=== PATIENT | male | born 1990 | race Caucasian/White ===

== ENCOUNTER 2017-01-10 17:15 | Emergency (ER) | payer OTHER ==
[~2017-01-10] VITALS: Wt 61.5 kg
[~2017-01-10 17:15] MED LIST: ACET500C5 PO; DIVA250T60 PO; QUET200T4 PO; TRAZ100T15 PO
[2017-01-10] MEDS ORDERED: CIPR500T4 PO (17:27)
--- NOTE | 2017-01-10 17:30 | ERD ---
ER Documentation Chief Complaint Date/Time DATE: 01/10/17 TIME: 17:29 Chief Complaint MED REFILL FOR CIPRO POSSIBLE EXPOSURE TO MENINGITIS NO SYMPTOMS HPI This is a 26-year-old male who is here for exposure to meningitis. The patient' s mother is being admitted for meningitis. Patient is asymptomatic and he is here for 1 dose of Cipro for prophylactic exposure ROS All systems reviewed and are negative except as per history of present illness. Medications Home Meds Active Scripts Ciprofloxacin Hcl* (Ciprofloxacin Hcl*) 500 Mg Tablet, 500 MG PO now for 1 Day, #1 TAB Prov:SONDRA KWAN DO 01/10/17 Acetaminophen* (Tylophen*) 500 Mg Capsule, 1 CAP PO Q6H Y for PAIN AND OR ELEVATED TEMP, #18 CAP Prov:BEL VINCENT MD 07/06/16 Divalproex Sodium* (Depakote*) 250 Mg Tablet.dr, 250 MG PO BID, #60 TAB Prov:KAT LIMA MD 03/13/16 Reported Medications Trazodone Hcl* (Trazodone Hcl*) 100 Mg Tablet, 100 MG PO QHS, #30 TAB 03/12/16 Quetiapine Fumarate* (Seroquel* XR) 200 Mg Tab.sr.24h, 200 MG PO BID 03/28/13 Allergies Allergies: Coded Allergies: aripiprazole (Verified Allergy, Mild, RASH/ITCHING, 03/12/16) PMhx/Soc History of Surgery: Yes Anesthesia Reaction: No Hx Neurological Disorder: Yes Hx Respiratory Disorders: Yes (Asthma) Hx Cardiac Disorders: No Hx Psychiatric Problems: Yes Hx Miscellaneous Medical Probl: Yes (per mother "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 Neck: Full range of motion..~ No meningismus. Resp: Clear to auscultation bilaterally Cardio: Regular rate and rhythm, no murmurs Abd: Soft, non tender, non distended. Normal bowel sounds Skin: No petechiae or rashes Back: No midline or flank tenderness Ext: No cyanosis, or edema Neur: Awake and alert Psych: Normal Mood and Affect Procedures/MDM Cipro 500 mg 1 Departure Diagnosis: Primary Impression: Exposure to meningitis Condition: Stable Patient Instructions: SONDRA Suazo DO Jan 10, 2017 17:30
== END 2017-01-10 17:38 | disposition home or self-care (01) ==
LOC: E/R 17:15
DX: Z20.811 Contact with and (suspected) exposure to meningococcus (principal); J45.909 Unspecified asthma, uncomplicated; Z87.891 Personal history of nicotine dependence
CPT/HCPCS: 99283

== ENCOUNTER 2017-04-28 00:53 | Emergency (ER) | payer OTHER ==
[~2017-04-28] VITALS: Ht 167.6 cm; Wt 62.7 kg
[~2017-04-28 00:53] MED LIST changes: +CIPR500T4 PO
[2017-04-28 00:56] VITALS: Ht 167.6 cm; Wt 62.7 kg
[2017-04-28 02:04] LABS: ABNORMAL IP MESSAGE 1; BASOPHILS % 0.4 % (0.0-2.0); EOSINOPHILS % 0.4 % (0.0-7.0); HEMOGLOBIN 11.9 g/dl (14.0-18.0); LYMPHOCYTES # 1.7 10^3/ul (0.8-2.9); LYMPHOCYTES % 30.8 % (15.0-51.0); MEAN CORPUSCULAR HEMOGLOBIN 32.5 pg (29.0-33.0); MEAN CORPUSCULAR VOLUME 92.9 fl (82.0-101.0); MEAN PLATELET VOLUME 11.4 fl (7.4-10.4); MONOCYTE # 0.8 10^3/ul (0.3-0.9); MONOCYTES % 13.8 % (0.0-11.0); NEUTROPHILS % 54.2 % (39.0-77.0); PLATELET COUNT 85 10^3/UL (140-415); POSITIVE DIFF @See below; RED BLOOD COUNT 3.66 10^6/ul (4.70-6.10); RED CELL DISTRIBUTION WIDTH 12.2 % (11.5-14.5); WHITE BLOOD COUNT 5.6 10^3/ul (4.8-10.8)
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
[2017-04-28 02:21] LABS: ALANINE AMINOTRANSFERASE 30 IU/L (13-69); ALBUMIN 3.9 g/dl (3.3-4.9); ALBUMIN/GLOBULIN RATIO 1.39; ALKALINE PHOSPHATASE 65 IU/L (42-121); ANION GAP 21 (8-16); ASPARTATE AMINO TRANSFERASE 26 IU/L (15-46); BILIRUBIN,INDIRECT 0.3 mg/dl (0-1.1); BILIRUBIN,TOTAL 0.3 mg/dl (0.2-1.3); BLOOD UREA NITROGEN 12 mg/dl (7-20); CALCIUM 9.6 mg/dl (8.4-10.2); CARBON DIOXIDE 27 mmol/L (21-31); CHLORIDE 101 mmol/L (97-110); CREATININE 0.97 mg/dl (0.61-1.24); GLUCOSE 101 mg/dl (70-220); SODIUM 145 mmol/L (135-144); TOTAL PROTEIN 6.7 g/dl (6.1-8.1)
[2017-04-28] MEDS ORDERED: QUETIAPINE 25 MG TAB PO SCH (02:30)
[2017-04-28] MEDS ORDERED: DIVALPROEX (EC) 250 MG TAB PO SCH (02:30)
[2017-04-28 02:46] LABS: ACETAMINOPHEN < 10.0 ug/ml (10.0-30.0); SALICYLATE < 1.0 mg/dl (5.0-30.0)
[2017-04-28 02:47] LABS: ETHANOL < 10.0 mg/dl
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
[2017-04-28 09:11] LABS: ADD UMIC YES; UR ASCORBIC ACID NEGATIVE (NEGATIVE); UR BILIRUBIN (Dip) NEGATIVE (NEGATIVE); UR BLOOD (Dip) NEGATIVE (NEGATIVE); UR CLARITY CLEAR (CLEAR); UR COLOR STRAW (YELLOW); UR GLUCOSE (Dip) NEGATIVE (NEGATIVE); UR KETONES (Dip) NEGATIVE (NEGATIVE); UR LEUKOCYTE ESTERASE (Dip) TRACE Leu/ul (NEGATIVE); UR NITRITE (Dip) NEGATIVE (NEGATIVE); UR RBC 0 /HPF (0-5); UR SPECIFIC GRAVITY (Dip) 1.005 (1.003-1.030); UR TOTAL PROTEIN (Dip) NEGATIVE (NEGATIVE); UR UROBILINOGEN (Dip) NEGATIVE (NEGATIVE)
[2017-04-28 09:49] LABS: BARBITURATES Negative (NEGATIVE); BENZODIAZEPINES Negative (NEGATIVE); CANNABINOIDS Negative (NEGATIVE); COCAINE Negative (NEGATIVE); OPIATES Negative (NEGATIVE)
[2017-04-28] MEDS: QUETIAPINE 25 MG TAB PO SCH ×2 (10:42→22:01)
[2017-04-28] MEDS: DIVALPROEX (EC) 250 MG TAB PO SCH ×2 (10:43→22:01)
--- NOTE | 2017-04-28 15:18 | EN ---
Date/Time of Note Date/Time of Note DATE: 04/28/17 TIME: 15:16 (FAN CHAN) ER Progress Note This patient had initially been seen by a previous ER physician and was awaiting psychiatric evaluation. Dr. Samson, the telemetry psychiatrist had spoken with the patient and his mother. She stated he did not meet criteria for 5150 as he was not a danger to himself or others. Due to the psychosis Dr. Samson stated she did feel however that the patient would benefit from admission for discussion of possible medication changes to improve his situation. However the patient and his mother stated they would prefer to leave AGAINST MEDICAL ADVICE and follow-up with her primary care physician. The patient was explained that leaving AGAINST MEDICAL ADVICE could lead to worsening of his condition such as however Dr. Samson and myself explained to him this in detail and he still stating he would prefer to leave AGAINST MEDICAL ADVICE and was a medical capacity to make his own decisions. Again the patient denied any suicidal or homicidal thoughts or ideations at this time. Therefore the patient will be leaving AGAINST MEDICAL ADVICE at 1518 on April 28, 2017 (FAN CHAN) This 26-year-old male has been here for 4 days on a psych hold. Patient has been interviewed by psych 3 times and they are continuing to put him on a hold for some reason. I discussed the case with his mother at bedside and the patient extensively. The patient is not having any agitation paranoia suicidal or homicidal thoughts he does not hear voices or have any visual hallucinations. The patient usually takes Depakote and Seroquel to control his moods and symptoms. The patient has been observed by me for several hours in the emergency department he has been very calm and cooperative. I feel at this point he is safe to go home. He is no longer psychotic or agitated whatsoever. Const: [Well-developed, well-nourished] Head: [Atraumatic, normocephalic] Eyes: [Normal Conjunctiva, PERRLA, EOMI, normal sclera, no nystagmus] ENT: [Normal External Ears, Nose and Mouth, moist mucus membranes.] Neck: [Full range of motion. No meningismus, no lymphadenopathy.] Resp: [Clear to auscultation bilaterally, no wheezing, rhonchi, rales] Cardio: [Regular rate and rhythm, no murmurs, S1 S2 present] Abd: [Soft, non tender x 4, non distended. Normal bowel sounds, no guarding or rebound, no pulsitile abdominal masses or bruits] Skin: [No petechiae or rashes, no ecchymosis , no maculopapular rash] Back: [No midline or flank tenderness] Ext: [No cyanosis, or edema, FROM x 4, normal inspection, neurovascularly intact x 4] Neur: [Awake and alert, STR 5/5 x 4, sensation intact x 4, no focal findings, cerebellum intact] Psych: [Normal Mood and Affect, calm, cooperative, pleasant, no paranoia Going to release the hold on this patient and discharge him home with his mother. Diagnosis: Psychosis resolved Condition: Stable Disposition: Home Discharge home with Depakote and Seroquel] (SONDRA KWAN DO) FAN CHAN Apr 28, 2017 15:18 SONDRA KWAN DO May 01, 2017 19:09
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
[2017-04-28] MEDS ORDERED: HALOPERIDOL 5 MG INJ IM STA (15:43)
[2017-04-28] MEDS ORDERED: LORAZEPAM 2 MG INJ ONE (15:45)
[2017-04-28] MEDS ORDERED: DIPHENHYDRAMINE 50 MG INJ IM ONE (16:00)
[2017-04-28] MEDS ORDERED: LORAZEPAM 2 MG INJ IM ONE (16:00)
[2017-04-28] MEDS ORDERED: ZIPRASIDONE 20 MG CAP PO ONE ×2 (21:00)
[2017-04-28] MEDS ORDERED: RISP0.2553 PO (23:11)
[2017-04-28] MEDS ORDERED: DIPH25CA6 PO (23:11)
[2017-04-29] MEDS: QUETIAPINE 25 MG TAB PO SCH ×2 (10:08→20:38)
[2017-04-29] MEDS: DIVALPROEX (EC) 250 MG TAB PO SCH ×2 (10:08→20:38)
[2017-04-30] MEDS ORDERED: LORAZEPAM 2 MG INJ IM ONE ×2 (07:30→21:00)
[2017-04-30] MEDS: DIVALPROEX (EC) 250 MG TAB PO SCH ×2 (08:50→20:09)
[2017-04-30] MEDS: QUETIAPINE 25 MG TAB PO SCH ×2 (08:50→20:09)
[2017-04-30] MEDS ORDERED: LORAZEPAM 1 MG TAB PO ONE (19:00)
[2017-05-01] MEDS: DIVALPROEX (EC) 250 MG TAB PO SCH (08:57)
[2017-05-01] MEDS: QUETIAPINE 25 MG TAB PO SCH (09:00)
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
[2017-05-01] MEDS ORDERED: BISACODYL 10 MG SUPP PR ONE (15:00)
[2017-05-01] MEDS ORDERED: QUET300T13 PO (19:11)
[2017-05-01] MEDS ORDERED: DIVA250T60 PO (19:11)
[2017-05-01] MEDS ORDERED: NA P133E5 RC (19:12)
[2017-05-01] MEDS ORDERED: BISA10SU55 RC (19:12)
[2017-05-01 19:29] VITALS: BP 129/78; PULSE 94; RESP 20; TEMP 98.3
== END 2017-05-01 19:40 ==
LOC: E/R 00:53
DX: F29 Unspecified psychosis not due to a substance or known physiological condition (principal); J45.909 Unspecified asthma, uncomplicated; F17.210 Nicotine dependence, cigarettes, uncomplicated
CPT/HCPCS: 36415; 80053; 80164; 80306; 80307; 81001; 85025; 96372; J1200; J1630; J2060; Z7502; Z7610

== ENCOUNTER 2017-08-08 12:00 | Emergency (ER) | END 2017-08-08 14:23 | disposition home or self-care (01) | DX: S09.90XA Unspecified injury of head, initial encounter (principal); J45.909 Unspecified asthma, uncomplicated; F17.210 Nicotine dependence, cigarettes, uncomplicated; R51 Headache; V89.2XXA Person injured in unspecified motor-vehicle accident, traffic, initial encounter | CPT/HCPCS: 70450; 72125; Z7502 ==

== ENCOUNTER 2017-10-19 15:09 | Emergency (ER) | END 2017-10-20 01:10 | disposition home or self-care (01) ==

== ENCOUNTER 2018-03-19 10:25 | Emergency (ER) | END 2018-03-19 12:51 | disposition home or self-care (01) ==